=== PATIENT | female | born 1945 | race Caucasian/White ===

== ENCOUNTER 2019-07-14 09:27 | Emergency (ER) | payer MEDICARE, OTHER ==
[2019-07-14] MEDS ORDERED: Sodium Chloride 0.9% 10 ML Syringe FLUSH PRN (09:46)
--- NOTE | 2019-07-14 09:49 | EDM.PDOC ---
ED HPI GENERAL MEDICAL PROBLEM - General Chief Complaint: Respiratory Problem Stated Complaint: SHORT NESS OF BREATH CANCER Time Seen by Provider: 07/14/19 09:39 Source of Information: Reports: Patient, Family, RN Notes Reviewed History Limitations: Reports: No Limitations - History of Present Illness INITIAL COMMENTS - FREE TEXT/NARRATIVE: 73-year-old female presents to the emergency department today via EMS services with complaint of shortness of breath. [place] has been diagnosed with ovarian cancer has an appointment with the [facility] next week. She states she was feeling fine yesterday this morning sudden onset of shortness of breath felt some chest heaviness she was sweaty very short of breath no nausea or vomiting. EMS arrived by reports oxygen saturation was in the 70s EKG demonstrates normal sinus rhythm however required 10 L mask to maintain oxygen saturation. She does have an allergy to aspirin and difficulty with contrast dye Left Chest Pain Score (Numeric/FACES): 3 - Related Data Allergies Allergy/AdvReac Type Severity Reaction Status Date / Time aspirin Allergy Airway Verified 07/28/16 09:50 Tightness Penicillins Allergy Rash Verified 07/28/16 09:50 Home Meds: Home Meds Chlorthalidone 25 mg PO DAILY 07/28/16 [History] Insulin Regular, Human [Novolin R] 12 unit IJ BEDTIME 07/28/16 [History] Insulin Regular, Human [Novolin R] 33 unit IJ BID 07/28/16 [History] Losartan [Cozaar] 100 mg PO DAILY 07/28/16 [History] Metoprolol Tartrate 25 mg PO BID 07/28/16 [History] Pen Needle, Diabetic [Novofine 32] 35 units INJECT BID 07/28/16 [History] Pravastatin [Pravachol] 20 mg PO DAILY 07/28/16 [History] Spironolactone [Aldactone] 25 mg PO DAILY 07/28/16 [History] Past Medical History HEENT History: Reports: Impaired Vision Other HEENT History: wears glasses Cardiovascular History: Reports: Hypertension Respiratory History: Reports: Pneumonia, Recurrent Gastrointestinal History: Reports: Cholelithiasis 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: Musculoskeletal History: Reports: Arthritis Endocrine/Metabolic History: Reports: Diabetes, Type II Oncologic (Cancer) History: Reports: Other (See Below) Other Oncologic History: recent diagnosis of cancer, maybe uterine or ovarian - Infectious Disease History Infectious Disease History: Reports: Chicken Pox, Measles, Mumps - Past Surgical History GI Surgical History: Reports: Appendectomy, Cholecystectomy, Hernia Repair/Other Endocrine Surgical History: Reports: Other (See Below) Musculoskeletal Surgical History: Reports: None Social & Family History - Tobacco Use Smoking Status *Q: Never Smoker - Caffeine Use Caffeine Use: Reports: Soda - Recreational Drug Use Recreational Drug Use: No ED ROS GENERAL - Review of Systems Review Of Systems: See Below Constitutional: Reports: Diaphoresis HEENT: Reports: No Symptoms Respiratory: Reports: Shortness of Breath. Denies: Cough, Sputum, Hemoptysis Cardiovascular: Reports: Chest Pain, Dyspnea on Exertion GI/Abdominal: Denies: Nausea, Vomiting Skin: Reports: No Symptoms Neurological: Reports: No Symptoms ED EXAM, GENERAL - Physical Exam Exam: See Below Exam Limited By: No Limitations General Appearance: Alert, WD/WN, No Apparent Distress Throat/Mouth: Normal Inspection, Normal Lips, Normal Teeth, Normal Gums, Normal Oropharynx, Normal Voice, No Airway Compromise Head: Atraumatic, Normocephalic Neck: Normal Inspection, Supple, Non-Tender, Full Range of Motion Respiratory/Chest: No Respiratory Distress, Lungs Clear, Normal Breath Sounds, No Accessory Muscle Use, Chest Non-Tender Cardiovascular: Regular Rate, Rhythm, No Murmur GI/Abdominal: Soft, Non-Tender Course - Vital Signs Last Recorded V/S: Last Vital Signs Temp 95 F L 07/14/19 09:30 Pulse 91 07/14/19 11:17 Resp 19 07/14/19 11:17 BP 118/63 07/14/19 11:17 Pulse Ox 96 07/14/19 11:17 - Orders/Labs/Meds Orders: Active Orders 24 hr Category Date Time Status Cardiac Monitoring [RC] .As Directed Care 07/14/19 09:46 Active Cardiac Monitoring [RC] STAT Care 07/14/19 10:57 Ordered Communication Order [RC] Per Unit Routine Care 07/14/19 10:57 Ordered Communication Order [RC] Per Unit Routine Care 07/14/19 10:57 Ordered Peripheral IV Care [RC] . DIRECTED Care 07/14/19 09:47 Active Chest 1V Frontal [CR] Stat Exams 07/14/19 09:47 Taken Heparin Sodium/D5W [Heparin 25,000 Units in D5W 500 ML] Med 07/14/19 11:00 Ordered 25,000 units in 500 ml IV TITRATE Sodium Chloride 0.9% [Saline Flush] Med 07/14/19 09:46 Active 10 ml FLUSH ASDIRECTED PRN Aspirin Contraindications AMI [AST] Per Unit Routine Ot 07/14/19 10:43 Ordered Peripheral IV Insertion Adult [OM.PC] Stat Ot 07/14/19 09:46 Ordered Saline Lock Insert [OM.PC] Stat Ot 07/14/19 09:46 Ordered Medication Orders Heparin Sodium/Dextrose (Heparin 25,000 Units In D5w 500 Ml) 25,000 units in 500 mls @ 29.393 mls/hr IV TITRATE ML; Protocol Last Admin: 07/14/19 11:13 Dose: 12 units/kg/hr, 29.393 mls/hr Sodium Chloride (Saline Flush) 10 ml FLUSH ASDIRECTED PRN PRN Reason: Keep Vein Open Last Admin: 07/14/19 11:08 Dose: 10 ml Labs: Laboratory Tests 07/14/19 07/14/19 07/14/19 Range/Units 09:55 09:55 09:55 WBC 11.1 H (4.5-11.0) K/uL RBC 4.73 (3.30-5.50) M/uL Hgb 13.9 D (12.0-15.0) g/dL Hct 45.2 (36.0-48.0) % MCV 96 (80-98) fL MCH 29 (27-31) pg MCHC 31 L (32-36) % Plt Count 183 (150-400) K/uL Neut % (Auto) 79 H (36-66) % Lymph % (Auto) 10 L (24-44) % Sargent % (Auto) 9 H (2-6) % Eos % (Auto) 2 (2-4) % Baso % (Auto) 0 (0-1) % PT (9.5-12.0) sec INR (0.80-1.20) APTT (27.0-36.0) sec D-Dimer, Quantitative 4960 H (0.0-400.0) ng/mL Sodium 137 L (140-148) mmol/L Potassium 4.4 (3.6-5.2) mmol/L Chloride 101 (100-108) mmol/L Carbon Dioxide 29 (21-32) mmol/L Anion Gap 11.4 (5.0-14.0) mmol/L BUN 28 H (7-18) mg/dL Creatinine 1.4 H (0.6-1.0) mg/dL Est Cr Clr Drug Dosing 34.00 mL/min Estimated GFR (MDRD) 37 L (>60) Glucose 173 H (74-106) mg/dL Lactic Acid (0.4-2.0) mmol/L Calcium 9.1 (8.5-10.1) mg/dL Total Bilirubin 0.6 (0.2-1.0) mg/dL AST 17 (15-37) U/L ALT 20 (12-78) U/L Alkaline Phosphatase 86 (46-116) U/L CK-MB (CK-2) 2.8 (0-3.6) mg/mL Troponin I 0.485 H* (0.000-0.056) ng/mL NT-Pro-B Natriuret Pep 86 (5-125) pg/mL Total Protein 6.5 (6.4-8.2) g/dL Albumin 2.7 L (3.4-5.0) g/dL Globulin 3.8 H (2.3-3.5) g/dL Albumin/Globulin Ratio 0.7 L (1.2-2.2) 07/14/19 07/14/19 Range/Units 09:55 10:57 WBC (4.5-11.0) K/uL RBC (3.30-5.50) M/uL Hgb (12.0-15.0) g/dL Hct (36.0-48.0) % MCV (80-98) fL MCH (27-31) pg MCHC (32-36) % Plt Count (150-400) K/uL Neut % (Auto) (36-66) % Lymph % (Auto) (24-44) % Sargent % (Auto) (2-6) % Eos % (Auto) (2-4) % Baso % (Auto) (0-1) % PT 10.7 (9.5-12.0) sec INR 0.99 (0.80-1.20) APTT 25.7 L (27.0-36.0) sec D-Dimer, Quantitative (0.0-400.0) ng/mL Sodium (140-148) mmol/L Potassium (3.6-5.2) mmol/L Chloride (100-108) mmol/L Carbon Dioxide (21-32) mmol/L Anion Gap (5.0-14.0) mmol/L BUN (7-18) mg/dL Creatinine (0.6-1.0) mg/dL Est Cr Clr Drug Dosing mL/min Estimated GFR (MDRD) (>60) Glucose (74-106) mg/dL Lactic Acid 1.8 (0.4-2.0) mmol/L Calcium (8.5-10.1) mg/dL Total Bilirubin (0.2-1.0) mg/dL AST (15-37) U/L ALT (12-78) U/L Alkaline Phosphatase (46-116) U/L CK-MB (CK-2) (0-3.6) mg/mL Troponin I (0.000-0.056) ng/mL NT-Pro-B Natriuret Pep (5-125) pg/mL Total Protein (6.4-8.2) g/dL Albumin (3.4-5.0) g/dL Globulin (2.3-3.5) g/dL Albumin/Globulin Ratio (1.2-2.2) Meds: Medications Generic Name Dose Route Start Last Admin Trade Name Freq PRN Reason Stop Dose Admin Heparin Sodium/Dextrose 25,000 units in 500 mls @ 29.393 mls/hr 07/14/19 11: 00 07/14/19 11:13 Heparin 25,000 Units In D5w 500 Ml IV 12 units/kg/hr TITRATE ML 29.393 mls/hr Administration Protocol 12 UNITS/KG/HR Sodium Chloride 10 ml 07/14/19 09:46 07/14/19 11:08 Saline Flush FLUSH 10 ml ASDIRECTED PRN Administration Keep Vein Open Discontinued Medications Generic Name Dose Route Start Last Admin Trade Name Freq PRN Reason Stop Dose Admin Heparin Sodium (Porcine) 4,000 units 07/14/19 10:56 07/14/19 11:07 Heparin Sodium IVPUSH 07/14/19 10:57 4,000 units ONETIME ONE Administration Ticagrelor 180 mg 07/14/19 10:56 07/14/19 11:06 Brilinta PO 07/14/19 10:57 180 mg ONETIME ONE Administration Departure - Departure Time of Disposition: 11:25 Disposition: DC/Tfer to Acute Hospital 02 Condition: Poor Clinical Impression: Pulmonary embolism Qualifiers: Pulmonary embolism type: other Chronicity: acute - Discharge Information Referrals: PCP,None [Primary Care Provider] - Forms: ED Department Discharge - My Orders Last 24 Hours: My Active Orders 07/14/19 09:46 Cardiac Monitoring [RC] .As Directed Sodium Chloride 0.9% [Saline Flush] 10 ml FLUSH ASDIRECTED PRN Peripheral IV Insertion Adult [OM.PC] Stat Saline Lock Insert [OM.PC] Stat 07/14/19 09:47 Peripheral IV Care [RC] . DIRECTED Chest 1V Frontal [CR] Stat 07/14/19 10:43 Aspirin Contraindications AMI [AST] Per Unit Routine 07/14/19 10:57 Cardiac Monitoring [RC] STAT Communication Order [RC] Per Unit Routine Communication Order [RC] Per Unit Routine 07/14/19 11:00 Heparin Sodium/D5W [Heparin 25,000 Units in D5W 500 ML] 25,000 units in 500 ml IV TITRATE - Assessment/Plan Last 24 Hours: My Active Orders 07/14/19 09:46 Cardiac Monitoring [RC] .As Directed Sodium Chloride 0.9% [Saline Flush] 10 ml FLUSH ASDIRECTED PRN Peripheral IV Insertion Adult [OM.PC] Stat Saline Lock Insert [OM.PC] Stat 07/14/19 09:47 Peripheral IV Care [RC] . DIRECTED Chest 1V Frontal [CR] Stat 07/14/19 10:43 Aspirin Contraindications AMI [AST] Per Unit Routine 07/14/19 10:57 Cardiac Monitoring [RC] STAT Communication Order [RC] Per Unit Routine Communication Order [RC] Per Unit Routine 07/14/19 11:00 Heparin Sodium/D5W [Heparin 25,000 Units in D5W 500 ML] 25,000 units in 500 ml IV TITRATE Plan: Assessment Acuity = acute Site and laterality = suspected pulmonary embolism with cardiac strain complicated in a patient with known history of diabetes, hypertension and dyslipidemia with recent diagnosis of reproductive cancer definitive diagnosis pending Etiology = [unknown etiology Manifestations = hypoxia Location of injury = Home Lab values = CBC unremarkable d-dimer elevated 4960 creatinine elevated 1.4 consistent with chronic renal failure stage G IIIB lactic acid normal 1.8 troponin elevated 0.485 unclear etiology albumin low at 2.7 consistent with hypoalbuminemia Plan Called discussed case with Dr. Esposito emergency room physician at [facility] kindly accepted the patient in transport she does have an aspirin allergy therefore given Brentlia, 4000 unit bolus of heparin will be initiated on a heparin drip in route for further evaluation and treatment This note was dictated using [employer] voice recognition software please call with any questions on syntax or grammar.
[2019-07-14] MEDS ORDERED: Ticagrelor 90 MG Tab PO ONE (10:56)
[2019-07-14] MEDS ORDERED: Heparin Sodium 5,000 Units/ML Vial IVPUSH ONE (10:56)
[2019-07-14] MEDS ORDERED: Heparin Sodium/D5W 25,000 UNITS/500 ML BAG IV SCH (11:00)
[2019-07-14 11:17] VITALS: BP 118/63
--- NOTE | 2019-07-14 12:00 | CR ---
CHEST: Portal 07/14/2019 at 1002 CLINICAL HISTORY:Chest pain COMPARISON:None FINDINGS: There is some patchy density in the venous segment of the right middle lobe and the lingula. This may be infiltrate or atelectasis. Heart size and pulmonary vascularity are normal. There are atherosclerotic changes in the aorta. Impression: Streaky density in both the medial segment of the right middle lobe and the lingula. Infiltrate is not excluded. Two-view chest is recommended when patient condition allows
== END 2019-07-14 12:00 ==
LOC: JP.ED 09:27
DX: I26.99 Other pulmonary embolism without acute cor pulmonale (principal); I10 Essential (primary) hypertension; E11.9 Type 2 diabetes mellitus without complications; Z88.0 Allergy status to penicillin; Z79.899 Other long term (current) drug therapy; Z79.4 Long term (current) use of insulin; Z90.49 Acquired absence of other specified parts of digestive tract; Z88.6 Allergy status to analgesic agent
CPT/HCPCS: 36415; 71045; 80053; 82553; 83605; 83880; 84484; 85025; 85379; 85610; 85730; 96365; 99285; A9270; J1644